=== PATIENT | female | born 1965 | race Caucasian/White ===

== ENCOUNTER 2016-06-17 03:41 | Emergency (ER) | payer OTHER ==
[~2016-06-17] VITALS: Ht 165.1 cm; Wt 80.0 kg
[~2016-06-17 03:41] MED LIST: DIVA500T PO; LIPI80TA PO; LISI-515 PO; OXYB5TAB10 PO; TRAZ100T4 PO
[2016-06-17 03:48] VITALS: BP 118/73; PULSE 75; RESP 18; TEMP 97.6; O2SAT 93
[2016-06-17] MEDS ORDERED: DIVA250ER PO (03:56)
[2016-06-17] MEDS ORDERED: TRAZ100T4 PO (03:56)
[2016-06-17] MEDS ORDERED: LIPI80TA PO (03:56)
[2016-06-17] MEDS ORDERED: LISI2.5T3 PO (03:56)
[2016-06-17] MEDS ORDERED: THIAMINE INJ 100 MG in SODIUM CHLORIDE 0.9% INJ 100 ML IV ONE (04:00)
[2016-06-17] MEDS ORDERED: SODIUM CHLOR 0.9% 1000 ML INJ 1,000 ML IV ONE (04:00)
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
[2016-06-17 04:51] LABS: AUTOMATED NEUTROPHIL # 1.6 TH/MM3 (1.8-7.7); BASOPHIL % 0.4 % (0.0-2.0); EOSINOPHIL # 0.2 TH/MM3 (0-0.4); EOSINOPHIL % 4.8 % (0.0-4.0); HEMO FLAGS DIFF FINAL; LYMPH % 46.7 % (9.0-44.0); LYMPHOCYTE # 1.9 TH/MM3 (1.0-4.8); MEAN CELL VOLUME 96.6 FL (80.0-100.0); MEAN CORPUSCULAR HEMOGLOBIN 34.4 PG (27.0-34.0); MEAN CORPUSCULAR HGB CONC 35.6 % (32.0-36.0); MONO % 8.2 % (0.0-8.0); NEUT % 39.9 % (16.0-70.0); PLATELET COUNT 165 TH/MM3 (150-450); RED BLOOD COUNT 4.65 MIL/MM3 (4.00-5.30)
[2016-06-17 04:59] LABS: BICARBONATE 29.7 MEQ/L (21.0-32.0)
[2016-06-17 05:12] VITALS: RESP 18; O2SAT 96
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
[2016-06-17] MEDS ORDERED: CYCL5TAB PO (06:13)
[2016-06-17 07:22] VITALS: BP 127/85; PULSE 71; RESP 18; O2SAT 95
[2016-07-10] MEDS ORDERED: DEPA500T3 PO (10:01)
[2016-07-10] MEDS ORDERED: LISI-515 PO (10:01)
[2016-07-10] MEDS ORDERED: OXYB5TAB10 PO (10:01)
[2016-07-10] MEDS ORDERED: LIPI80TA PO ×2 (10:03→11:25)
[2016-08-22] MEDS ORDERED: BUSP10TA PO (14:26)
== END 2016-06-17 09:40 | disposition home or self-care (01) ==
LOC: NEPE 03:41
DX: F10.129 Alcohol abuse with intoxication, unspecified (principal); F17.200 Nicotine dependence, unspecified, uncomplicated; J45.909 Unspecified asthma, uncomplicated; F31.9 Bipolar disorder, unspecified; J44.9 Chronic obstructive pulmonary disease, unspecified; Z86.73 Personal history of transient ischemic attack (TIA), and cerebral infarction without residual deficits; I10 Essential (primary) hypertension; F20.9 Schizophrenia, unspecified
CPT/HCPCS: 70450; 71010; 72100; 72125; 80048; 80320; 84703; 85025; 96365; 99284; J3411; J7030

== ENCOUNTER → 2016-07-10 | Outpatient (CLI) | payer OTHER ==
[~2016-07-10] MED LIST changes: +BUSP10TA PO; +CYCL5TAB PO; +DEPA500T3 PO; +DIVA250ER PO; -DIVA500T PO; +LISI2.5T3 PO; +TRAZ50TA12 PO
[2016-07-10 13:52] LABS: HDL CHOLESTEROL 51.9 MG/DL (40.0-60.0)
== END ==
LOC: CLAB 11:11
PROVIDERS: ATTEND Family Medicine
DX: F31.9 Bipolar disorder, unspecified (principal); E78.5 Hyperlipidemia, unspecified
CPT/HCPCS: 36415; 80061

== ENCOUNTER 2016-10-30 23:31 | Observation (INO) | payer OTHER ==
[~2016-10-30] VITALS: Ht 162.6 cm; Wt 70.0 kg
[~2016-10-30 23:31] MED LIST changes: -CYCL5TAB PO; -DIVA250ER PO; -LISI2.5T3 PO; -TRAZ50TA12 PO
[2016-10-30 23:36] VITALS: BP 141/81; PULSE 87; RESP 18; TEMP 98.4; O2SAT 96
[2016-10-30] MEDS ORDERED: TRAZ50TA12 PO (23:47)
[2016-10-31] VITALS (7 sets, daily range): BP systolic 107–120; BP diastolic 52–69; PULSE 66–81; RESP 18–21; TEMP 97.4–97.9; O2SAT 94–98
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
[2016-10-31] MEDS ORDERED: SODIUM CHLORIDE 0.9% FLUSH 10 ML FLUSH IVF PRN ×2 (00:15→02:15)
--- NOTE | 2016-10-31 00:16 | RADRPT ---
EXAM DATE/TIME: 10/31/2016 00:14 [facility] COMPARISON: CHEST SINGLE AP, June 17, 2016, 4:30. INDICATIONS : Chest pain. MEDICAL HISTORY : Chronic obstructive pulmonary disease. SURGICAL HISTORY : None. ENCOUNTER: Initial ACUITY: 1 day PAIN SCORE: 5/10 LOCATION: Bilateral chest FINDINGS: A single view of the chest demonstrates the lungs to be symmetrically aerated without evidence of mas s, infiltrate or effusion. The cardiomediastinal contours are unremarkable. Osseous structures are intact. CONCLUSION: No acute disease. Barry Ospina MD on October 31, 2016 at 0:14 Board Certified Radiologist. This report was verified electronically.
[2016-10-31] MEDS: NITROGLYCERIN 0.4 MG SL 25 TABS/BTL SL SCH ×2 (00:25→00:30)
[2016-10-31] MEDS ORDERED: SODIUM CHLOR 0.9% 1000 ML INJ 1,000 ML IV ONE (01:00)
[2016-10-31 01:05] LABS: APTT (PATIENT) 27.8 SEC (24.3-30.1); INTERNATIONAL NORMALIZED RATIO 0.9 RATIO; PROTHROMBIN TIME - PATIENT 10.1 SEC (9.8-11.6)
[2016-10-31 01:08] LABS: AUTOMATED NEUTROPHIL # 3.7 TH/MM3 (1.8-7.7); BASOPHIL % 0.4 % (0.0-2.0); EOSINOPHIL # 0.1 TH/MM3 (0-0.4); EOSINOPHIL % 2.2 % (0.0-4.0); HEMO FLAGS DIFF FINAL; LYMPH % 32.6 % (9.0-44.0); LYMPHOCYTE # 2.2 TH/MM3 (1.0-4.8); MEAN CELL VOLUME 96.8 FL (80.0-100.0); MEAN CORPUSCULAR HEMOGLOBIN 34.4 PG (27.0-34.0); MEAN CORPUSCULAR HGB CONC 35.5 % (32.0-36.0); MONO % 9.6 % (0.0-8.0); NEUT % 55.2 % (16.0-70.0); PLATELET COUNT 223 TH/MM3 (150-450); RED BLOOD COUNT 4.55 MIL/MM3 (4.00-5.30); RED CELL DISTRIBUTION WIDTH 14.3 % (11.6-17.2); WHITE BLOOD COUNT 6.7 TH/MM3 (4.0-11.0)
[2016-10-31 01:10] LABS: ANION GAP 8 MEQ/L (5-15); BLOOD UREA NITROGEN 11 MG/DL (7-18); CHLORIDE 102 MEQ/L (98-107); GLOMERULAR FILTRATION RATE 60 ML/MIN (>89); SODIUM (NA) 139 MEQ/L (136-145)
[2016-10-31 01:27] LABS: CREATINE KINASE 65 U/L (26-192)
[2016-10-31 04:19] LABS: CREATINE KINASE 52 U/L (26-192)
[2016-10-31 08:17] LABS: CREATINE KINASE 42 U/L (26-192)
[2016-10-31] MEDS ORDERED: SODIUM CHLORIDE 0.9% FLUSH 10 ML FLUSH IV FLUSH SCH (09:00)
[2016-10-31] MEDS ORDERED: SODIUM CHLORIDE 0.9% FLUSH 10 ML FLUSH SCH (09:00)
[2016-10-31] MEDS ORDERED: LISINOPRIL 20 MG TAB PO SCH (10:00)
[2016-10-31] MEDS ORDERED: cloNIDine HCL 0.1 MG TAB PO PRN (10:00)
[2016-10-31] MEDS ORDERED: RESP: ALBUTEROL 2.5 MG/IPRATROPIUM 0.5 MG NEB (PRN) INH (10:00)
--- NOTE | 2016-10-31 10:25 | HHI.HP ---
[facility] Primary Care Physician Kylah Mike MD Chief Complaint Chest pain History of Present Illness This is a 51-year-old female that presents to the ED via E VAC with a complaint of 2 months of intermittent chest discomfort and shortness of breath. States she has COPD. States she's been under a lot of stress. She is currently living in a homeless care home/transition home. She states over the last week or so the discomfort has become more frequent. She believes is related to stress but states it also occurs when she walks too fast. She will become short of breath. Cannot recall nausea or diaphoresis. When asked how long the symptoms last patient states "I don't remember, I don't count." Denies recent illness. Denies fevers or chills. Denies being . Review of Systems General: Patient denies fevers, chills recent, and recent travel HEENT: Patient denies headache, sore throat, difficulty swallowing. Cardiovascular: Has the chest discomfort as mentioned above. Denies sensation of heart beating rapidly or irregularly. No syncope. Respiratory: She has been short of breath but states that is not terribly uncommon as she has COPD and continues to smoke. Denies inspirational chest discomfort. She states that she has been coughing for 36 years that she has been smoking but denies any productive cough. Denies wheezing or hemoptysis. GI: Patient denies nausea, vomiting, diarrhea, abdominal pain, bloody stools. Musculoskeletal: Patient denies joint pain or edema. Denies calf pain or edema. Neurovascular: Patient denies numbness, tingling, weakness in extremities. Denies headache. Endocrine: Denies polyuria and polydipsia. Hematologic: Denies easy bruising. Skin: Denies rash or itching. Past Family Social History Allergies: Coded Allergies: Aspirin (Verified Adverse Reaction, Severe, NAUSEA, 08/22/16) ON 06-17-11, PT DENIES BEING ALLERGIC TO ASPIRIN. SHE STATES SHE TAKES ASPIRIN ALL THE TIME WITHOUT REACTION. Past Medical History Hypertension, hyperlipidemia, COPD, tobacco abuse, bipolar disorder, and alcohol abuse. Denies diabetes and known CAD. Past Surgical History Denies. Reported Medications Reported Meds & Active Scripts Active Lipitor (Atorvastatin Calcium) 80 Mg Tab 80 Mg PO HS Reported Trazodone (Trazodone HCl) 50 Mg Tab 100 Mg PO HS Buspirone (Buspirone HCl) 10 Mg Tab 10 Mg PO TID Depakote ER (Divalproex Sodium) 500 Mg Suman 1,000 Mg PO DAILY Ditropan (Oxybutynin Chloride) 5 Mg Tab 5 Mg PO Q8HR Lisinopril 20 Mg Tab 20 Mg PO DAILY Active Ordered Medications Current Medications Medications (Trade) Dose Ordered Sig/Gladys Route Start Time Stop Time Status Last Admin (NS Flush) 2 ml UNSCH PRN IVF 10/31/16 02:15 (NS Flush) 2 ml BID .XX 10/31/16 09:00 10/31/16 09:00 (Catapres) 0.1 mg Q4H PRN PO 10/31/16 10:00 UNV (Lipitor) 80 mg HS PO 10/31/16 21:00 UNV (Buspar) 10 mg TID PO 10/31/16 13:00 UNV (Prinivil) 20 mg DAILY PO 10/31/16 10:00 UNV (Ditropan) 5 mg Q8HR PO 10/31/16 14:00 UNV (Desyrel) 100 mg HS PO 10/31/16 21:00 UNV Family History States that her mother has CAD and has had stents. Social History Patient states that she smokes but states she does not count to how many cigarettes she does smoke. She states that she drinks but again does not count how much alcohol she drinks. She denies illicit drugs. She is currently residing in a homeless care home/transition home. Physical Exam Vital Signs Vital Signs Date Time Temp Pulse Resp B/P Pulse Ox O2 Delivery O2 Flow Rate FiO2 10/31/16 07:27 97.9 70 21 107/61 95 10/31/16 05:53 68 10/31/16 04:23 97.4 66 18 113/69 98 10/31/16 02:56 69 18 108/52 96 Room Air 10/31/16 02:08 95 10/31/16 00:33 81 18 107/58 94 Room Air 10/31/16 00:26 77 18 120/69 97 Room Air 10/30/16 23:42 97 Room Air 10/30/16 23:36 98.4 87 18 141/81 96 Physical Exam GENERAL: This is a well-nourished, well-developed patient, in no apparent distress. Patient speaks in clear complete sentences. Patient is pleasant. She was examined with a female nurse olive pitter at the bedside in its entirety. HEENT: Head is atraumatic and normocephalic. Neck is supple without lymphadenopathy and trachea is midline. No JVD or carotid bruits. CARDIOVASCULAR: Regular rate and rhythm without murmurs, gallops, or rubs. RESPIRATORY: Clear to auscultation. Breath sounds equal bilaterally. No wheezes , rales, or rhonchi. Chest wall is tender and reproduces a discomfort that brought her to the ED. No use of accessory muscles. GASTROINTESTINAL: Abdomen is nontender, nondistended. Abdomen soft. No obvious pulsatile mass or bruit. No CVA tenderness. Strong femoral pulses bilaterally. Normal bowel sounds in all quadrants. MUSCULOSKELETAL: Patient is moving upper and lower extremities freely. No calf tenderness or edema, no Homans sign. Strong pulses in upper and lower extremities. NEUROLOGICAL: Patient is alert and oriented. Cranial nerves 2-12 are grossly intact. No focal deficits and speech is clear. SKIN: No rash and turgor is normal. Laboratory Laboratory Tests Test 10/31/16 10/31/16 10/31/16 00:05 02:55 06:09 White Blood Count 6.7 Red Blood Count 4.55 Hemoglobin 15.6 Hematocrit 44.0 Mean Corpuscular Volume 96.8 Mean Corpuscular Hemoglobin 34.4 Mean Corpuscular Hemoglobin 35.5 Concent Red Cell Distribution Width 14.3 Platelet Count 223 Mean Platelet Volume 8.8 Neutrophils (%) (Auto) 55.2 Lymphocytes (%) (Auto) 32.6 Monocytes (%) (Auto) 9.6 Eosinophils (%) (Auto) 2.2 Basophils (%) (Auto) 0.4 Neutrophils # (Auto) 3.7 Lymphocytes # (Auto) 2.2 Monocytes # (Auto) 0.6 Eosinophils # (Auto) 0.1 Basophils # (Auto) 0.0 CBC Comment DIFF FINAL Differential Comment Prothrombin Time 10.1 Prothromb Time International 0.9 Ratio Activated Partial 27.8 Thromboplast Time Sodium Level 139 Potassium Level 4.0 Chloride Level 102 Carbon Dioxide Level 29.0 Anion Gap 8 Blood Urea Nitrogen 11 Creatinine 0.98 Estimat Glomerular Filtration 60 Rate Random Glucose 88 Calcium Level 9.2 Magnesium Level 3.0 Total Creatine Kinase 65 52 42 Troponin I LESS THAN 0.02 LESS THAN 0.02 LESS THAN 0.02 Ethyl Alcohol Level 165 Result Diagram: 10/31/16 0005 10/31/16 0005 Imaging Last 24 hours Impressions Chest X-Ray 10/31/16 0002 Signed Impressions: Service Date/Time: , October 31, 2016 00:14 - CONCLUSION: No acute disease. Barry Ospina MD Course EKGs have sinus rhythm without significant ST segment depressions or elevations. Assessment and Plan Assessment and Plan * Chest pain: Patient has had serial cardiac enzymes and EKGs for ruling out purposes. She will be seen by Dr. Samuels of cardiology in the chest pain center and will undergo a Lexiscan. She'll be discharged home if her stress test was nonischemic. * Hypertension: Continue current medication. * Hyperlipidemia: Continue current medication. * Bipolar disorder: Continue current medication. * Tobacco abuse: Patient has been counseled on the importance of smoking cessation. Patient is stable at this time. She is agreeable to this plan. Sage Vargas Oct 31, 2016 10:25
[2016-10-31] MEDS ORDERED: REGADENOSON INJ 0.4 MG/5 ML SYR ONE (11:57)
[2016-10-31] MEDS ORDERED: busPIRone HCL 10 MG TAB PO SCH (13:00)
--- NOTE | 2016-10-31 13:39 | TR ---
Date Performed: 10/31/2016 Time Performed: 11:44:09 DOCTOR: Adalberto Samuels DRUG LIST: CLINICAL HISTORY: REASON FOR TEST: CHEST PAIN REASON FOR ENDING: OBSERVATION: CONCLUSION: Lexiscan stress test was performed under standard four minute protocol. Radionuclid e was injected one minute prior to ending the test. No electrocardiographic abormalities were present to suggest ischemia. Nuclear imaging and interpretation are pending. COMMENTS:
--- NOTE | 2016-10-31 13:42 | EKG ---
Date Performed: 10/31/2016 Time Performed: 02:36:18 PTAGE: 51 years EKG: Sinus rhythm NORMAL ECG PREVIOUS TRACING : 05/16/2015 00.39 Since previous tracing, no significant change noted DOCTOR: Adalberto Samuels Interpretating Date/Time 10/31/2016 13:41:50
--- NOTE | 2016-10-31 13:43 | EKG ---
Date Performed: 10/30/2016 Time Performed: 23:54:15 PTAGE: 51 years EKG: Sinus rhythm BORDERLINE LEFT AXIS DEVIATION BORDERLINE ECG Since PREVIOUS TRACING , no significant change noted DOCTOR: Adalberto Samuels Interpretating Date/Time 10/31/2016 13:42:59
--- NOTE | 2016-10-31 13:45 | EKG ---
Date Performed: 10/31/2016 Time Performed: 06:01:45 PTAGE: 51 years EKG: Sinus rhythm NORMAL ECG PREVIOUS TRACING : 10/31/2016 02.36 Since previous tracing, no significant change noted DOCTOR: Adalberto Samuels Interpretating Date/Time 10/31/2016 13:43:23
[2016-10-31] MEDS ORDERED: OXYBUTYNIN CHLORIDE 5 MG TAB PO SCH (14:00)
--- NOTE | 2016-10-31 15:08 | RADRPT ---
EXAM DATE/TIME: 10/31/2016 10:57 [facility] COMPARISON: CHEST SINGLE AP, October 31, 2016, 0:14. INDICATIONS : Left chest pain. Angina. DOSE: 25.5 mCi Tc99m Myoview at stress. 8.3 mCi Tc99m Myoview at rest. 0.4 mg Lexiscan STRESS SYMPTOMS: Nausea and dizzy. EJECTION FRACTION: 67% MEDICAL HISTORY : Hypercholesterolemia. Hypertension. Chronic obstructive pulmonary disease. Smoker. Stroke. SURGICAL HISTORY : None. ENCOUNTER: Initial ACUITY: 1 day PAIN SCALE: 8/10 LOCATION: Left chest TECHNIQUE: The patient underwent pharmacologic stress with infusion of prescribed dose. Continuous ECG tracing was monitored during stress. Gated SPECT imaging was performed after stress and conventional SPECT i maging was performed at rest. The examination was performed on a SPECT/CT scanner, both attenuation and non-corrected datasets were reviewed. FINDINGS: DISTRIBUTION: The maximum perfused segment at stress is in the anterolateral wall. PERFUSION STUDY: The pattern of perfusion at stress is within normal limits. No fixed or reversible perfusion defect i s identified. GATED STUDY: There is intact wall motion and thickening without hypokinetic or dyskinetic segments. CONCLUSION: 1. Left ventricle perfusion is within normal limits. No fixed or reversible perfusion defect is ident ified. 2. Normal left ventricle wall motion and ejection fraction. RISK CATEGORY: Low (<1% Annual Mortality Rate) Barry Carver MD on October 31, 2016 at 15:03 Board Certified Radiologist. This report was verified electronically.
--- NOTE | 2016-10-31 15:17 | PD.AMA ---
Against Medical Advice Note Discharge Disposition: Against Medical Advice AMA Statement Patient Nikkie Toledo has decided to leave the hospital against medical advice. This patient has the capacity to refuse care and understands the risks of leaving, including permanent disability and/or , and has had an opportunity to ask questions about her condition. The patient has been informed that she may return for care at any time, and follow up has been arranged/ advised. Sage Vargas Oct 31, 2016 15:17
[2016-10-31] MEDS ORDERED: traZODone HCL 100 MG TAB PO SCH (21:00)
[2016-10-31] MEDS ORDERED: ATORVASTATIN 80 MG TAB PO SCH (21:00)
[2016-11-28] MEDS ORDERED: LIPI80TA PO (15:03)
== END 2016-10-31 16:54 | disposition home or self-care (01) ==
LOC: NEPC 23:31 → NEDA 10-31 02:06 → NEPFCDU 10-31 03:42
PROVIDERS: ADMIT Internal Medicine Cardiovascular Disease; ATTEND Internal Medicine Cardiovascular Disease
DX: R07.89 Other chest pain (principal); I10 Essential (primary) hypertension; E78.5 Hyperlipidemia, unspecified; F31.9 Bipolar disorder, unspecified; M19.90 Unspecified osteoarthritis, unspecified site; G89.29 Other chronic pain; J44.9 Chronic obstructive pulmonary disease, unspecified; F20.9 Schizophrenia, unspecified; M25.519 Pain in unspecified shoulder; G43.909 Migraine, unspecified, not intractable, without status migrainosus; F10.10 Alcohol abuse, uncomplicated; F17.200 Nicotine dependence, unspecified, uncomplicated; F41.9 Anxiety disorder, unspecified; Z88.6 Allergy status to analgesic agent; Z86.73 Personal history of transient ischemic attack (TIA), and cerebral infarction without residual deficits; Z82.49 Family history of ischemic heart disease and other diseases of the circulatory system
CPT/HCPCS: 71010; 78452; 80048; 80307; 82550; 83735; 84484; 85025; 85610; 85730; 93005; 93017; 99285; A9502; G0378; J2785; J7030

== ENCOUNTER → 2016-11-21 | Outpatient (CLI) | payer OTHER ==
[~2016-11-21] MED LIST changes: -TRAZ100T4 PO; +TRAZ50TA12 PO
[2016-11-21 08:59] LABS: AUTOMATED NEUTROPHIL # 2.5 TH/MM3 (1.8-7.7); BASOPHIL % 0.8 % (0.0-2.0); EOSINOPHIL # 0.2 TH/MM3 (0-0.4); HEMATOCRIT 43.2 % (35.0-46.0); HEMO FLAGS DIFF FINAL; LYMPHOCYTE # 1.7 TH/MM3 (1.0-4.8); MEAN CELL VOLUME 99.3 FL (80.0-100.0); MEAN CORPUSCULAR HEMOGLOBIN 33.4 PG (27.0-34.0); MEAN CORPUSCULAR HGB CONC 33.7 % (32.0-36.0); MONO % 11.8 % (0.0-8.0); NEUT % 50.4 % (16.0-70.0); PLATELET COUNT 203 TH/MM3 (150-450); RED BLOOD COUNT 4.35 MIL/MM3 (4.00-5.30); RED CELL DISTRIBUTION WIDTH 14.8 % (11.6-17.2)
[2016-11-21 09:20] LABS: ALKALINE PHOSPHATASE 57 U/L (45-117); ALT (GPT) 16 U/L (10-53); HDL CHOLESTEROL 50.6 MG/DL (40.0-60.0); TOTAL BILIRUBIN ADULT 0.2 MG/DL (0.2-1.0)
[2016-11-21 09:21] LABS: ANION GAP 9 MEQ/L (5-15); AST (GOT) 14 U/L (15-37); BICARBONATE 25.6 MEQ/L (21.0-32.0); BLOOD UREA NITROGEN 24 MG/DL (7-18); CHLORIDE 102 MEQ/L (98-107); GLOMERULAR FILTRATION RATE 62 ML/MIN (>89); GLUCOSE,FASTING 81 MG/DL (74-99); LDL CHOLESTEROL 84 MG/DL (0-99); POTASSIUM 4.2 MEQ/L (3.5-5.1); SODIUM (NA) 137 MEQ/L (136-145)
== END ==
LOC: CLAB 08:14
PROVIDERS: ATTEND Family Medicine
DX: F31.9 Bipolar disorder, unspecified (principal); J44.9 Chronic obstructive pulmonary disease, unspecified; E78.5 Hyperlipidemia, unspecified; I10 Essential (primary) hypertension; Z72.0 Tobacco use
CPT/HCPCS: 36415; 80053; 80061; 84443; 85025

== ENCOUNTER 2017-06-12 01:09 | Emergency (ER) | payer OTHER ==
[~2017-06-12] VITALS: Ht 162.6 cm; Wt 68.2 kg
[~2017-06-12 01:09] MED LIST changes: -OXYB5TAB10 PO; +OXYB5TAB8 PO
[2017-06-12 01:17] VITALS: BP 198/99; PULSE 71; RESP 20; TEMP 98.6; O2SAT 98
[2017-06-12] MEDS ORDERED: SODIUM CHLOR 0.9% 1000 ML INJ 1,000 ML IV SCH (01:26)
[2017-06-12] MEDS ORDERED: FAMOTIDINE 20 MG/2 ML VIAL IV PUSH ONE (01:30)
[2017-06-12] MEDS ORDERED: SODIUM CHLORIDE 0.9% FLUSH 10 ML FLUSH IV FLUSH PRN (01:30)
[2017-06-12] MEDS ORDERED: ONDANSETRON HCL 4 MG/2 ML VIAL IVP ONE (01:30)
[2017-06-12] MEDS ORDERED: ALUMINUM/MAGNESIUM/SIMETH 30 ML CUP PO ONE (01:30)
[2017-06-12] MEDS ORDERED: LIDOCAINE VISCOUS 2% SOLN 15 ML UDC PO ONE (01:30)
[2017-06-12 02:18] LABS: AUTOMATED NEUTROPHIL # 3.8 TH/MM3 (1.8-7.7); BASOPHIL % 0.5 % (0.0-2.0); EOSINOPHIL # 0.2 TH/MM3 (0-0.4); EOSINOPHIL % 2.9 % (0.0-4.0); HEMATOCRIT 42.5 % (35.0-46.0); HEMOGLOBIN 15.1 GM/DL (11.6-15.3); LYMPH % 30.8 % (9.0-44.0); LYMPHOCYTE # 2.1 TH/MM3 (1.0-4.8); MEAN CELL VOLUME 97.4 FL (80.0-100.0); MEAN CORPUSCULAR HEMOGLOBIN 34.6 PG (27.0-34.0); MEAN CORPUSCULAR HGB CONC 35.5 % (32.0-36.0); MEAN PLATELET VOLUME 8.9 FL (7.0-11.0); MONO % 9.5 % (0.0-8.0); MONOCYTE # 0.6 TH/MM3 (0-0.9); NEUT % 56.3 % (16.0-70.0); PLATELET COUNT 169 TH/MM3 (150-450); RED BLOOD COUNT 4.37 MIL/MM3 (4.00-5.30); RED CELL DISTRIBUTION WIDTH 13.2 % (11.6-17.2); WHITE BLOOD COUNT 6.7 TH/MM3 (4.0-11.0)
[2017-06-12 02:22] LABS: BILIRUBIN, URINE NEG (NEG); BLOOD, URINE NEG (NEG); GLUCOSE,URINE NEG (NEG); KETONE, URINE NEG (NEG); NITRITE,URINE NEG (NEG); PH, URINE 6.5 (5.0-8.5); SQUAMOUS EPITHELIAL CELL URINE 7 /hpf (0-5); URINE COLOR LIGHT-YELLOW (YELLW/STRAW); URINE LEUKOCYTE ESTERASE TRACE (NEG)
[2017-06-12 02:25] VITALS: BP 171/91; PULSE 72; RESP 20; O2SAT 99
[2017-06-12 02:43] LABS: ALKALINE PHOSPHATASE 78 U/L (45-117); TOTAL BILIRUBIN ADULT 0.5 MG/DL (0.2-1.0); TOTAL PROTEIN 7.5 GM/DL (6.4-8.2)
[2017-06-12] MEDS ORDERED: SUCRALFATE 1 GM TAB PO ONE (02:45)
[2017-06-12 02:47] LABS: ALBUMIN 3.8 GM/DL (3.4-5.0); ALT (GPT) 22 U/L (10-53); AST (GOT) 18 U/L (15-37); BICARBONATE 30.5 MEQ/L (21.0-32.0); BLOOD UREA NITROGEN 22 MG/DL (7-18); CALCIUM 8.4 MG/DL (8.5-10.1); CHLORIDE 101 MEQ/L (98-107); CREATININE 0.82 MG/DL (0.50-1.00); GLOMERULAR FILTRATION RATE 74 ML/MIN (>89); GLUCOSE,RANDOM 96 MG/DL (74-106); LIPASE 174 U/L (73-393); SODIUM (NA) 137 MEQ/L (136-145)
[2017-06-12] MEDS ORDERED: DIATRIZOATE MEGLUM/DIATRIZOATE SOD 9 ML CUP ONE (03:00)
[2017-06-12] MEDS ORDERED: IOHEXOL 350 MG/ML 10 ML VIAL (for RAD DIAG) IVCONTRAST ONE (04:46)
--- NOTE | 2017-06-12 05:20 | RADRPT ---
EXAM DATE/TIME: 06/12/2017 04:32 [facility] COMPARISON: No previous studies available for comparison. INDICATIONS : Abdomen pain. IV CONTRAST: 80 cc Omnipaque 350 (iohexol) IV ORAL CONTRAST: Prescribed oral contrast ingested. RADIATION DOSE: 7.17 CTDIvol (mGy) MEDICAL HISTORY : Hypertension. Chronic obstructive pulmonary disease. SURGICAL HISTORY : None. ENCOUNTER: Initial ACUITY: 1 day PAIN SCALE: 4/10 LOCATION: Bilateral abdomen TECHNIQUE: Volumetric scanning of the abdomen and pelvis was performed. Using automated exposure control and ad justment of the mA and/or kV according to patient size, radiation dose was kept as low as reasonably achievable to obtain optimal diagnostic quality images. DICOM format image data is available electro nically for review and comparison. FINDINGS: Examination of the lung bases demonstrates no abnormality. No pleural fluid is identified. No pulmona ry nodules are present. The liver and spleen are normal in size and no focal defects are identified. The gallbladder and pancreas are unremarkable. No intrahepatic or extrahepatic ductal dilatation is s een. The adrenal glands are unremarkable. The right kidney is unremarkable. There is a single simple cyst in the left kidney measuring 2 cm in the lower pole. The bladder appears normal. No wall thickening or intraluminal masses are identified. There is a 4.8 x 2.6 cm septated left adnexal mass. Malignancy is not excluded. MRI is recommended for further evalu ation if clinically indicated. No abnormally enlarged lymph nodes are identified. No free fluid is id entified. CONCLUSION: 1. No evidence of acute abdominal or pelvic process. No masses are identified. 2. 4.8 x 2.8 cm septated cystic left adnexal mass. MRI is recommended for further evaluation if clini surinder indicated. Jorge Addison MD on June 12, 2017 at 5:13 Board Certified Radiologist. This report was verified electronically.
[2017-06-12] MEDS ORDERED: FAMO1TAB37 PO (05:29)
[2017-06-12] MEDS ORDERED: CARA1TAB6 PO (05:29)
--- NOTE | 2017-06-12 05:29 | PD ---
HPI . Abdominal pain Chief Complaint: Abdominal Pain Time Seen by Provider: 01:21 Travel History International Travel<30 days: No Contact w/Intl Traveler<30days: No Traveled to known affect area: No History of Present Illness HPI 51-year-old female complains of epigastric burning this evening. Patient's pain is nonradiating, similar to prior epigastric pain consistent with gastritis /reflux esophagitis. Patient denies any hematemesis melena or hematochezia. Patient also denies any change in appetite, and denies any stearrhea. Denies fevers chills sweats, cough, change in exercise tolerance. PFSH Past Medical History Narrative Medical Past medical history reviewed Asthma: Yes Bipolar Disorder: Yes Anxiety: Yes Depression: Yes Cardiac Catheterization: No Cardiovascular Problems: Yes (ANGINA) High Cholesterol: Yes Chest Pain: Yes Congestive Heart Failure: No COPD: Yes Cerebrovascular Accident: Yes Diabetes: No Diminished Hearing: No Herniated Disk: Yes (L3,4,5) Hypertension: Yes Psychiatric: Yes Respiratory: Yes (COPD) Immunizations Current: No Migraines: Yes Schizophrenia: Yes Tetanus Vaccination: > 5 Years Influenza Vaccination: No ?: Unknown LMP: @3mths ago Menopausal: Yes : 4 Miscarriage: 4 Ectopic : Yes (4 ) Past Surgical History Surgical History: No Previous Surgery Coronary Artery Bypass Graft: No Family History Family Myocardial Infarction: Yes (mother) Social History Alcohol Use: Yes (sober 5 months) Tobacco Use: Yes (1/2 PPD) Substance Use: No (hx of) Allergies-Medications (Allergen,Severity, Reaction): Coded Allergies: aspirin (Unverified Adverse Reaction, Severe, NAUSEA, 01/14/17) ON 06-17-11, PT DENIES BEING ALLERGIC TO ASPIRIN. SHE STATES SHE TAKES ASPIRIN ALL THE TIME WITHOUT REACTION. Reported Meds & Prescriptions Reported Meds & Active Scripts Active Lipitor (Atorvastatin Calcium) 80 Mg Tab 80 Mg PO HS Reported Trazodone (Trazodone HCl) 50 Mg Tab 100 Mg PO HS Buspirone (Buspirone HCl) 10 Mg Tab 10 Mg PO TID Depakote ER (Divalproex Sodium) 500 Mg Suman 1,000 Mg PO DAILY Ditropan (Oxybutynin Chloride) 5 Mg Tab 5 Mg PO Q8HR Lisinopril 20 Mg Tab 20 Mg PO DAILY Narrative Medication Allergies and medications reviewed Review of Systems Except as stated in HPI: all other systems reviewed are Neg General / Constitutional: No: Fever Eyes: No: Visual changes HENT: No: Headaches Cardiovascular: No: Chest Pain or Discomfort Respiratory: No: Shortness of Breath Gastrointestinal: Positive: Nausea, Abdominal Pain, No: Vomiting, Diarrhea, Hematemesis, Hematochezia Genitourinary: No: Dysuria Musculoskeletal: No: Pain Skin: No Rash Neurologic: No: Weakness Psychiatric: No: Depression Endocrine: No: Polydipsia Hematologic/Lymphatic: No: Easy Bruising Physical Exam Narrative GENERAL: Awake and alert oriented 3 no acute distress SKIN: Warm and dry. Color is normal no diaphoresis cyanosis or pallor HEAD: Atraumatic. Normocephalic. EYES: Pupils equal and round. No scleral icterus. No injection or drainage. ENT: No nasal bleeding or discharge. Mucous membranes pink and moist. NECK: Trachea midline. No JVD. Supple full range of motion CARDIOVASCULAR: Regular rate and rhythm. S1-S2 no murmurs rubs or gallops RESPIRATORY: No accessory muscle use. Clear to auscultation. Breath sounds equal bilaterally. GASTROINTESTINAL: Abdomen soft, tender epigastrium, no rebound or guarding no masses noted, nondistended. Hepatic and splenic margins not palpable. MUSCULOSKELETAL: Extremities without clubbing, cyanosis, or edema. No obvious deformities. NEUROLOGICAL: Awake and alert. No obvious cranial nerve deficits. Motor grossly within normal limits. Five out of 5 muscle strength in the arms and legs. Normal speech. PSYCHIATRIC: Appropriate mood and affect; insight and judgment normal. Data Data Last Documented VS Vital Signs Date Time Temp Pulse Resp B/P (MAP) Pulse Ox O2 Delivery O2 Flow Rate FiO2 06/12/17 02:25 72 20 171/91 (117) 99 Room Air 06/12/17 01:17 98.6 Orders Orders Complete Blood Count With Diff (06/12/17:) Comprehensive Metabolic Panel (06/12/17:) Lipase (06/12/17:) Urinalysis - C+S If Indicated (06/12/17:) Iv Access Insert/Monitor (06/12/17:) Ecg Monitoring (06/12/17:) Oximetry (06/12/17:) Ondansetron Inj (Zofran Inj) (06/12/17 01:30) Sodium Chlor 0.9% 1000 Ml Inj (Ns 1000 M (06/12/17 01:26) Sodium Chloride 0.9% Flush (Ns Flush) (06/12/17 01:30) Famotidine Inj (Pepcid Inj) (06/12/17 01:30) Al-Mag Hy-Si 40-40-4 Mg/Ml Liq (Mag-Al P (06/12/17 01:30) Lidocaine 2% Viscous (Xylocaine 2% Visco (06/12/17 01:30) Ed Urine Pregnancytest Poc (06/12/17 01:26) Sucralfate (Carafate) (06/12/17 02:45) Ct Abd/Pel W Iv Contrast(Rout) (06/12/17 ) Oral Contrast - Adult (06/12/17 02:49) Diatrizoate Liq ( Gastroview Liq) (06/12/17 03:00) Iohexol 350 Inj (Omnipaque 350 Inj) (06/12/17 04:46) Labs Laboratory Tests Test 06/12/17 01:52 06/12/17 02:00 Urine Color LIGHT-YELLOW Urine Turbidity CLEAR Urine pH 6.5 Urine Specific [place] 1.011 Urine Protein NEG mg/dL Urine Glucose (UA) NEG mg/dL Urine Ketones NEG mg/dL Urine Occult Blood NEG Urine Nitrite NEG Urine Bilirubin NEG Urine Urobilinogen LESS THAN 2.0 MG/DL Urine Leukocyte Esterase TRACE Urine RBC LESS THAN 1 /hpf Urine WBC 1 /hpf Urine Squamous Epithelial Cells 7 /hpf Microscopic Urinalysis Comment CULT NOT INDICATED White Blood Count 6.7 TH/MM3 Red Blood Count 4.37 MIL/MM3 Hemoglobin 15.1 GM/DL Hematocrit 42.5 % Mean Corpuscular Volume 97.4 FL Mean Corpuscular Hemoglobin 34.6 PG Mean Corpuscular Hemoglobin Concent 35.5 % Red Cell Distribution Width 13.2 % Platelet Count 169 TH/MM3 Mean Platelet Volume 8.9 FL Neutrophils (%) (Auto) 56.3 % Lymphocytes (%) (Auto) 30.8 % Monocytes (%) (Auto) 9.5 % Eosinophils (%) (Auto) 2.9 % Basophils (%) (Auto) 0.5 % Neutrophils # (Auto) 3.8 TH/MM3 Lymphocytes # (Auto) 2.1 TH/MM3 Monocytes # (Auto) 0.6 TH/MM3 Eosinophils # (Auto) 0.2 TH/MM3 Basophils # (Auto) 0.0 TH/MM3 CBC Comment DIFF FINAL Differential Comment Blood Urea Nitrogen 22 MG/DL Creatinine 0.82 MG/DL Random Glucose 96 MG/DL Total Protein 7.5 GM/DL Albumin 3.8 GM/DL Calcium Level 8.4 MG/DL Alkaline Phosphatase 78 U/L Aspartate Amino Transf (AST/SGOT) 18 U/L Alanine Aminotransferase (ALT/SGPT) 22 U/L Total Bilirubin 0.5 MG/DL Sodium Level 137 MEQ/L Potassium Level 4.1 MEQ/L Chloride Level 101 MEQ/L Carbon Dioxide Level 30.5 MEQ/L Anion Gap 6 MEQ/L Estimat Glomerular Filtration Rate 74 ML/MIN Lipase 174 U/L MDM Medical Decision Making Medical Screen Exam Complete: Yes Emergency Medical Condition: Yes Medical Record Reviewed: Yes Differential Diagnosis Gastritis, reflux esophagitis, pancreatitis, choledocholithiasis Narrative Course Laboratory examinations reviewed, no significant abnormalities. Patient had significant relief with Maalox lidocaine orally. Pain returned approximately 15 -20 minutes after administration of same. Patient perseverating about a possible not in her upper abdomen. Patient states that she can palpated and her boyfriend corroborates. Not appreciable to myself or to OSMAN Mont[place]ayor CT abdomen and pelvis performed, benign no intra-abdominal lesions, no intra- abdominal abnormalities noted Diagnosis Primary Impression: Gastritis Qualified Codes: K29.00 - Acute gastritis without bleeding Patient Instructions: Gastritis (ED), General Instructions Additional Instructions: Pepcid 20 mg twice daily. Carafate 1 g 3 times daily. Follow-up with your doctor. Recommend referral to leasing machine tender for upper endoscopy if symptoms persist. Return for worsening Scripts Sucralfate (Carafate) 1 Gram Tab 1 GM PO TID for Ulcer Prevention, #90 TAB 0 Refills On empty stomach Prov: Brandon Sampson MD 06/12/17 Famotidine (Pepcid) 20 Mg Tab 20 MG PO BID, #60 TAB 0 Refills Prov: Brandon Sampson MD 06/12/17 Disposition: 01 DISCHARGE HOME Condition: Stable Brandon Sampson MD Jun 12, 2017 05:29
== END 2017-06-12 06:10 | disposition home or self-care (01) ==
LOC: NEPC 01:09
DX: K29.00 Acute gastritis without bleeding (principal); E78.00 Pure hypercholesterolemia, unspecified; I10 Essential (primary) hypertension; F31.9 Bipolar disorder, unspecified; F41.9 Anxiety disorder, unspecified; F20.9 Schizophrenia, unspecified; J44.9 Chronic obstructive pulmonary disease, unspecified; Z86.73 Personal history of transient ischemic attack (TIA), and cerebral infarction without residual deficits; F17.200 Nicotine dependence, unspecified, uncomplicated
CPT/HCPCS: 74177; 80053; 81001; 83690; 84703; 85025; 96361; 96374; 96375; 99285; J2405; J7030; Q9963; Q9967